=== PATIENT | female | born 1995 | race African-American/Black ===

== ENCOUNTER 2019-12-10 09:07 | Emergency (ER) | payer BC, OTHER ==
--- NOTE | 2019-12-10 10:57 | ER Document Report ---
ED General - General Chief Complaint: Arm Pain Stated Complaint: ARM NUMBNESS Time Seen by Provider: 12/10/19 10:03 Mode of Arrival: Ambulatory Information source: Patient Notes: 24-year-old woman presents to the emergency department with a complaint of tingling and numbness in her fingertips with pain in the left axillary area. 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 She denies neck pain or continued symptoms. She notes that her symptoms have been ongoing for approximately 1 week. TRAVEL OUTSIDE OF THE [place] IN LAST 30 DAYS: No - Related Data Allergies/Adverse Reactions: No Known Allergies Allergy (Verified 12/10/19 09:10) Past Medical History - Social History Smoking Status: Never Smoker Chew tobacco use (# tins/day): No Frequency of alcohol use: None Drug Abuse: None Family History: Reviewed & Not Pertinent Patient has homicidal ideation: No Renal/ Medical History: Denies: Hx Ectopic Past Surgical History: Reports: Hx Oral Surgery - wisdom - Immunizations Immunizations up to date: Yes Hx Diphtheria, Pertussis, Tetanus Vaccination: Yes - 05/09/14 Review of Systems - Review of Systems Notes: Constitutional: Negative for fever. HENT: Negative for sore throat. Eyes: Negative for visual changes. Cardiovascular: Negative for chest pain. Respiratory: Negative for shortness of breath. Gastrointestinal: Negative for abdominal pain, vomiting or diarrhea. Genitourinary: Negative for dysuria. Musculoskeletal: + Left axillary pain, + left fingertip numbness and tingling. Skin: Negative for rash. Neurological: Negative for headaches, weakness or numbness. 10 point ROS negative except as marked above and in HPI. Physical Exam - Vital signs Vitals: Temp Pulse Resp BP Pulse Ox 98.7 F 87 14 137/81 H 98 12/10/19 09:10 12/10/19 09:10 12/10/19 09:10 12/10/19 09:10 12/10/19 09:10 - Notes Notes: PHYSICAL EXAMINATION: Physical Exam: General: Well-nourished well-developed in no acute distress HEENT: NC/AT, pupils equal round and reactive to light, MM moist,nares clear, oropharynx clear, airway patent Neck: supple, no adenopathy, no masses. Good range of motion, nontender Lungs: clear, no wheezing, no rales no rhonchi CVS: Regular rate and rhythm no murmur gallop or rub Abdomen: Soft, active, nontender, no masses, no hepatosplenomegaly Ext: Tenderness in the right axilla lateral aspect of the pectoralis muscle, no masses, no lymphadenopathy, left upper extremity with good strength and good range of motion at the wrist, elbow and shoulder. Neuro: Alert and responsive, moving all 4 extremities on command, cranial nerves intact, no focal findings Skin: Intact no open lesions, no rash PSYCH: Normal mood, normal affect. Course - Re-evaluation Re-evalutation: 12/10/19 10:55 34-year-old woman with left upper arm musculoskeletal pain and paresthesia in the left hand. Patient has not taken any medications, she is off work today, will treat empirically with associated inflammatory Naprosyn and prednisone. The patient is in agreement with this plan with the understanding that if her symptoms are not improving or if they are worsening further evaluation would be needed. - Vital Signs Vital signs: Temp Pulse Resp BP Pulse Ox 95.6 F L 87 14 137/81 H 98 12/10/19 09:13 12/10/19 09:10 12/10/19 09:10 12/10/19 09:10 12/10/19 09:10 Discharge - Discharge Clinical Impression: Pain of left upper extremity, Paresthesias in left hand Condition: Good Disposition: HOME, SELF-CARE Instructions: Numbness or Paresthesia ([facility]) Additional Instructions: You were seen in the emergency department today with left upper arm discomfort/pain and tingling in your fingertips. These symptoms may be related to musculoskeletal inflammatory reaction to your activity. You have been given Naprosyn and prednisone for a 5-day empiric treatment. If your symptoms are improving and resolve then no follow-up is needed. If your symptoms are worsening or are not improved please seek further care. You can follow-up with your primary care doctor or return to the emergency department. If your symptoms are worsening or if you have other concerns you may return to the emergency department for further evaluation and treatment. HOME CARE INSTRUCTIONS & INFORMATION: Thank you for choosing us for your medical needs. We hope you're satisfied with the care you received. After you leave, you must properly care for your problem and, at the same time, observe its progress. Any condition can change. Some illnesses can change rapidly over hours or days. If your condition worsens, return to the Emergency Department or see your physician promptly. ABOUT YOUR X-RAYS AND EKG'S: If you had an EKG or X-rays taken, they have been read by the Emergency Physician. The X-rays and EKG's will also be read by a Radiologist or [facility]er within 24 hours. If discrepancies are noted, you will be notified by telephone. Please be certain the ED has a correct telephone number & address where you can be reached. Also, realize that some fractures or abnormalities do not show up on initial X-rays. If your symptoms continue, see your physician. ABOUT YOUR LABORATORY TEST: If you had laboratory tests, the results have been reviewed by the Emergency Physician. Some test results (for example cultures) may not be available for several days. You will be contacted if any test result shows you need additional treatment. Please be certain the ED has a correct telephone number and address where you can be reached. ABOUT YOUR MEDICATIONS: You will receive instructions on how to take your medicine on the prescription label you receive. Additional information may be provided by the Pharmacy. If you have questions afterwards, call the ED for clarification or further instructions. Some prescribed medications may cause drowsiness. Do not perform tasks such as driving a car or operating machinery without consulting your Pharmacist. If you feel you need a refill of pain medication, your condition will need re-evaluation. Please do not call for a refill of any medication. ABOUT YOUR SIGNATURE: Signature of this document acknowledges to followin. Understanding that you received emergency treatment and that you may be released before al medical problems are known or treated. Please be certain the ED has a correct phone number & address where you can be reached. 2. Acknowledgement that you will arrange for follow-up care as recommended. 3. Authorization for the Emergency Physician to provide information to your follow-up Physician in order to maximize your care. AT ANY TIME, IF YOUR SYMPTOMS CHANGE SIGNIFICANTLY OR WORSEN OR YOU DEVELOP NEW SYMPTOMS, RETURN TO THE EMERGENCY DEPARTMENT IMMEDIATELY FOR RE-EVALUATION. OUR GOAL IS TO PROVIDE EXCELLENT MEDICAL CARE! WE HOPE THAT WE HAVE MET YOUR EXPECTATIONS DURING YOUR EMERGENCY DEPARTMENT VISIT AND THAT YOU FEEL YOU HAVE RECEIVED EXCELLENT CARE! Prescriptions: Prednisone [Deltasone 20 mg Tablet] 1 tab PO BID 5 Days #10 tablet Naproxen [Naprosyn] 500 mg PO BID #20 tablet
[2019-12-10 11:14] VITALS: BP 131/80
== END 2019-12-10 11:25 | disposition home or self-care (01) ==
LOC: ER 09:07
DX: M79.622 Pain in left upper arm (principal); R20.0 Anesthesia of skin; R20.2 Paresthesia of skin
CPT/HCPCS: 99283